=== PATIENT | male | born 1955 | race Caucasian/White ===

== ENCOUNTER → 2020-11-28 | Outpatient (CLI) | payer BC | END | disposition home or self-care (01) | LOC: LABWHC1 14:02 | PROVIDERS: ATTEND Family Medicine | DX: Z20.822 Contact with and (suspected) exposure to COVID-19 (principal) | CPT/HCPCS: U0003; C9803; U0005 ==

== ENCOUNTER 2021-03-19 09:17 | Emergency (ER) | payer BC ==
[2021-03-19 09:22] VITALS: RESP 18; TEMP 97.7
--- NOTE | 2021-03-19 09:34 | ED ---
General Adult HPI - General Chief complaint: Neuro Symptoms/Deficit Stated complaint: Neuro Symptoms Time Seen by Provider: 03/19/21 09:25 Source: patient, RN notes reviewed, old records reviewed Mode of arrival: ambulatory Limitations: no limitations - History of Present Illness Initial comments: 65-year-old male who had presented for evaluation of right-sided facial droop which began yesterday 7 PM as a mild headache and difficulty closing his eye. 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 Patient has no limb weakness, no speech abnormalities. He noted weakness to the entire right side of his face both upper and lower. 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 He states that at that time they had accidentally drawn cardiac enzymes and he was noted to have an elevated troponin and subsequently required CABG. He has no active chest pain. He is active and was working outside yesterday. No difficulty breathing. - Related Data Home Medications Medication Instructions Recorded Confirmed Atorvastatin Calcium [Lipitor] 80 mg PO HS 10/16/15 03/19/21 lisinopriL [Zestril] 20 mg PO HS 10/16/15 03/19/21 Aspirin 81 mg PO DAILY 03/19/21 03/19/21 hydroCHLOROthiazide 25 mg PO DAILY PRN 03/19/21 03/19/21 lisinopriL [Zestril] 10 mg PO ONETIME 03/19/21 03/19/21 Previous Rx's Medication Instructions Recorded Artificial Tears Ointment 1 gm OPHTHALMIC HS #30 ml 03/19/21 [Lubrifresh Pm Ointment] Artificial Tears-Hypromellose 1 drops RIGHT EYE QID #30 ml 03/19/21 [Artificial Tear Drops] predniSONE [Deltasone] 60 mg PO DAILY 7 Days #21 tab 03/19/21 valACYclovir HCL [Valtrex] 1,000 mg PO Q8HR #21 tab 03/19/21 Allergies Allergy/AdvReac Type Severity Reaction Status Date / Time No Known Allergies Allergy Verified 03/19/21 10:25 Review of Systems ROS Statement: Those systems with pertinent positive or pertinent negative responses have been documented in the HPI. ROS Other: All systems not noted in ROS Statement are negative. Past Medical History Past Medical History: GERD/Reflux, Hypertension, Myocardial Infarction (non Q- wave) Last Myocardial Infarction Date:: 05/2009 History of Any Multi-Drug Resistant Organisms: None Reported Past Surgical History: Coronary Bypass/CABG, Heart Catheterization, Hernia Repair Past Anesthesia/Blood Transfusion Reactions: No Reported Reaction Past Psychological History: No Psychological Hx Reported Smoking Status: Former smoker Past Alcohol Use History: None Reported Past Drug Use History: None Reported - Past Family History Mother Family Medical History: No Reported History General Exam Limitations: no limitations General appearance: alert, in no apparent distress Head exam: Present: atraumatic, normocephalic Eye exam: Present: PERRL, other (Cannot close his right eye completely) Respiratory exam: Present: normal lung sounds bilaterally. Absent: respiratory distress Cardiovascular Exam: Present: regular rate, normal rhythm GI/Abdominal exam: Present: soft. Absent: distended, tenderness, guarding Extremities exam: Present: normal inspection, normal capillary refill Neurological exam: Present: alert, oriented X3, motor sensory deficit (Patient has right sided facial weakness both upper and lower. He's unable to close his eye tightly. Forehead involved.). Absent: CN II-XII intact Psychiatric exam: Present: normal affect, normal mood Skin exam: Present: warm, dry, intact. Absent: cyanosis, diaphoretic Course Vital Signs 03/19/21 03/19/21 09:18 10:22 Temperature 97.7 F Pulse Rate 69 62 Respiratory 18 18 Rate Blood Pressure 162/85 153/94 O2 Sat by Pulse 98 Oximetry EKG Findings - EKG Comments: EKG Findings:: Normal sinus rhythm, incomplete right bundle-branch block, rate of 62, no ST segment elevation, KS interval 166, QRS duration 104, QTC 426. Medical Decision Making - Medical Decision Making 65-year-old male presenting with sudden onset facial weakness on the right. His exam is consistent with a Wyatt's palsy there is both upper and lower weakness no forehead sparing. The remainder of his neurologic exam is completely normal. He was sent in by the primary care physician for CT rule out CVA. I have a low suspicion for CVA in this patient as negative. Laboratory testing including CBC, electrolytes, troponin are unremarkable. His EKG is sinus rhythm without ST segment elevation. Patient is given Valtrex and steroids as well as artificial tears an artificial tear ointment is instructed to tape his eyelid shut at night. He will follow both with neurology and with ophthalmology. He is given strict return parameters. - Lab Data Result diagrams: 03/19/21 09:41 03/19/21 09:41 Lab Results 03/19/21 03/19/21 03/19/21 Range/Units 09:41 09:41 09:41 WBC 7.7 (3.8-10.6) k/uL RBC 5.70 (4.30-5.90) m/uL Hgb 15.0 (13.0-17.5) gm/dL Hct 46.3 (39.0-53.0) % MCV 81.2 (80.0-100.0) fL MCH 26.2 (25.0-35.0) pg MCHC 32.3 (31.0-37.0) g/dL RDW 14.6 (11.5-15.5) % Plt Count 239 (150-450) k/uL MPV 7.5 Neutrophils % 74 % Lymphocytes % 15 % Monocytes % 5 % Eosinophils % 2 % Basophils % 1 % Neutrophils # 5.7 (1.3-7.7) k/uL Lymphocytes # 1.1 (1.0-4.8) k/uL Monocytes # 0.4 (0-1.0) k/uL Eosinophils # 0.2 (0-0.7) k/uL Basophils # 0.1 (0-0.2) k/uL PT 10.7 (9.0-12.0) sec INR 1.0 (<1.2) APTT 27.1 (22.0-30.0) sec Sodium 139 (137-145) mmol/L Potassium 4.3 (3.5-5.1) mmol/L Chloride 106 (98-107) mmol/L Carbon Dioxide 24 (22-30) mmol/L Anion Gap 9 mmol/L BUN 16 (9-20) mg/dL Creatinine 0.69 (0.66-1.25) mg/dL Est GFR (CKD-EPI)AfAm >90 (>60 ml/min/1.73 sqM) Est GFR (CKD-EPI)NonAf >90 (>60 ml/min/1.73 sqM) Glucose 104 H (74-99) mg/dL Calcium 9.3 (8.4-10.2) mg/dL Total Bilirubin 0.6 (0.2-1.3) mg/dL AST 39 (17-59) U/L ALT 41 (4-49) U/L Alkaline Phosphatase 192 H (38-126) U/L Troponin I (0.000-0.034) ng/mL Total Protein 7.3 (6.3-8.2) g/dL Albumin 4.1 (3.5-5.0) g/dL 03/19/21 Range/Units 09:41 WBC (3.8-10.6) k/uL RBC (4.30-5.90) m/uL Hgb (13.0-17.5) gm/dL Hct (39.0-53.0) % MCV (80.0-100.0) fL MCH (25.0-35.0) pg MCHC (31.0-37.0) g/dL RDW (11.5-15.5) % Plt Count (150-450) k/uL MPV Neutrophils % % Lymphocytes % % Monocytes % % Eosinophils % % Basophils % % Neutrophils # (1.3-7.7) k/uL Lymphocytes # (1.0-4.8) k/uL Monocytes # (0-1.0) k/uL Eosinophils # (0-0.7) k/uL Basophils # (0-0.2) k/uL PT (9.0-12.0) sec INR (<1.2) APTT (22.0-30.0) sec Sodium (137-145) mmol/L Potassium (3.5-5.1) mmol/L Chloride (98-107) mmol/L Carbon Dioxide (22-30) mmol/L Anion Gap mmol/L BUN (9-20) mg/dL Creatinine (0.66-1.25) mg/dL Est GFR (CKD-EPI)AfAm (>60 ml/min/1.73 sqM) Est GFR (CKD-EPI)NonAf (>60 ml/min/1.73 sqM) Glucose (74-99) mg/dL Calcium (8.4-10.2) mg/dL Total Bilirubin (0.2-1.3) mg/dL AST (17-59) U/L ALT (4-49) U/L Alkaline Phosphatase (38-126) U/L Troponin I <0.012 (0.000-0.034) ng/mL Total Protein (6.3-8.2) g/dL Albumin (3.5-5.0) g/dL Disposition Clinical Impression: Wyatt's palsy Disposition: HOME SELF-CARE Condition: Good Instructions (If sedation given, give patient instructions): Wyatt Palsy (ED) Prescriptions: Artificial Tears-Hypromellose [Artificial Tear Drops] 1 drops RIGHT EYE QID #30 ml predniSONE [Deltasone] 60 mg PO DAILY 7 Days #21 tab Artificial Tears Ointment [Lubrifresh Pm Ointment] 1 gm OPHTHALMIC HS #30 ml valACYclovir HCL [Valtrex] 1,000 mg PO Q8HR #21 tab Is patient prescribed a controlled substance at d/c from ED?: No Referrals: Vicky Kebede MD [Primary Care Provider] - 1-2 days Matteo Alejandro MD [STAFF PHYSICIAN] - 1-2 days Rahel Bermudez MD [REFERRING] - 1-2 days Time of Disposition: 10:55
[2021-03-19 09:56] LABS: Basophils # (A) 0.1 k/uL (0-0.2); Basophils % (A) 1 %; Eosinophils # (A) 0.2 k/uL (0-0.7); Eosinophils % (A) 2 %; HCT 46.3 % (39.0-53.0); Lymphocytes # (A) 1.1 k/uL (1.0-4.8); Lymphocytes % (A) 15 %; MCH 26.2 pg (25.0-35.0); MCHC 32.3 g/dL (31.0-37.0); MCV 81.2 fL (80.0-100.0); Mean Platelet Volume 7.5; Monocytes # (A) 0.4 k/uL (0-1.0); Monocytes % (A) 5 %; Neutrophils # (A) 5.7 k/uL (1.3-7.7); Neutrophils % (A) 74 %; Platelet Count 239 k/uL (150-450); RDW 14.6 % (11.5-15.5); WBC 7.7 k/uL (3.8-10.6)
[2021-03-19 10:07] LABS: ALT 41 U/L (4-49); AST 39 U/L (17-59); African American GFR (CKD) >90 (>60 ml/min/1.73 sqM); Albumin 4.1 g/dL (3.5-5.0); Alkaline Phosphatase 192 U/L (38-126); Anion Gap 9 mmol/L; Blood Urea Nitrogen 16 mg/dL (9-20); Calcium 9.3 mg/dL (8.4-10.2); Carbon Dioxide 24 mmol/L (22-30); Chloride 106 mmol/L (98-107); Glucose 104 mg/dL (74-99); Non-African American GFR(CKD) >90 (>60 ml/min/1.73 sqM); Potassium 4.3 mmol/L (3.5-5.1); Sodium 139 mmol/L (137-145); Total Bilirubin 0.6 mg/dL (0.2-1.3); Total Protein 7.3 g/dL (6.3-8.2)
--- NOTE | 2021-03-19 10:12 | CT ---
EXAMINATION TYPE: CT brain wo con DATE OF EXAM: 03/19/2021 COMPARISON: None HISTORY: right side facial droop, numbness CT DLP: 1099.[address] of the brain was performed. The ventricles, basal cisterns and sulci overlying the cerebral convexities demonstrate mild enlargem ent. Small lacunar infarct noted of the right-sided internal capsule at its genu. There is no evidence for intracranial hemorrhage or sulcal effacement. There is decreased attenuation about the periventricular white matter and deep white matter of both c erebral hemispheres, compatible with chronic small vessel ischemia. Differential diagnosis does inclu de demyelination. No mass effects are seen.No midline shift. Osseous calvarium is intact. If symptoms persist consider MRI. IMPRESSION: 1. Age related atrophic and chronic small vessel ischemic change without acute intracranial process s een at this time.
--- NOTE | 2021-03-19 10:13 | XR ---
EXAMINATION TYPE: XR chest 2V DATE OF EXAM: 03/19/2021 COMPARISON: NONE HISTORY: altered mental status TECHNIQUE: Frontal and lateral views of the chest are obtained. FINDINGS: There is no focal air space opacity, pleural effusion, or pneumothorax seen. The cardiac silhouette size is within normal limits. Patient is status post sternotomy. IMPRESSION: No acute cardiopulmonary process.
[2021-03-19 10:17] LABS: Partial Thromboplastin Time 27.1 sec (22.0-30.0); Prothrombin Time 10.7 sec (9.0-12.0)
[2021-03-19 10:47] VITALS: BP 153/94; PULSE 62
== END 2021-03-19 11:15 | disposition home or self-care (01) ==
LOC: EC 09:17
DX: G51.0 Bell's palsy (principal); I10 Essential (primary) hypertension; I25.2 Old myocardial infarction; Z87.891 Personal history of nicotine dependence; Z79.899 Other long term (current) drug therapy; Z95.1 Presence of aortocoronary bypass graft
CPT/HCPCS: 36415; 70450; 71046; 80053; 84484; 85025; 85610; 85730; 93005; 99284

== ENCOUNTER 2024-08-15 11:57 | Day surgery (SDC) | payer OTHER ==
[2024-08-14 11:54] VITALS: BMI 29.5
[2024-08-15] MEDS: IV FLUID CONTINUATION 1,000 ML IV ONE (13:06)
[2024-08-15 13:15] VITALS: TEMP 98.8
[2024-08-15] MEDS: LACTATED RINGERS 1,000 ML BAG IV STA (13:25)
[2024-08-15] MEDS ORDERED: PROPOFOL 10 MG/ML 20 ML VIAL IV ONE (13:53)
--- NOTE | 2024-08-15 14:27 | P.PCN ---
Date of Procedure: 08/15/24 Procedure(s) Performed: BRIEF HISTORY: Patient is a 69-year-old pleasant white male scheduled for an elective colonoscopy as a part of for colon cancer/positive Cologuard. PROCEDURE PERFORMED: Colonoscopy r with snare polypectomy and Endo Clip placement PREOPERATIVE DIAGNOSIS: Screening for colon cancer/positive:. IV sedation per Anesthesia. PROCEDURE: After informed consent was obtained, the patient, was brought into the endoscopy unit. IV sedation was administered by Anesthesia under continuous monitoring. Digital rectal examination was normal. Initially the Olympus CF-160 flexible video colonoscope was then inserted in the rectum, gradually advanced into the cecum without any difficulty. Careful examination was performed as the scope was gradually being withdrawn. Ileocecal valve and the appendiceal orifice were visualized and appeared normal. Prep was excellent. Mucosa of the cecum, had a 5 mm and 1 cm polyp removed by snare polypectomy. In the ascending colon there was a 1 cm, 2 cm and a 4 cm broad-based polyp that was removed by piecemeal snare polypectomy and complete polypectomy accomplished followed by Endo Clip placement. In the transverse colon there was a 1 cm x 2.2 cm polyp removed by snare polypectomy. In the descending colon there was another 2 cm polyp removed by snare polypectomy. In the rectum there was a 1 cm polyp removed by snare polypectomy. Retroflexion was performed in the rectum and no lesions were seen. The patient tolerated the procedure well. IMPRESSION: 5 mm 1 cm cecal polyp status post snare polypectomy 1 cm, 2 cm adenoma 4 cm broad-based ascending colon polyp status post snare polypectomy followed by Endo Clip placement 1 cm x 2 and 2 cm transverse colon polyp status post polypectomy 2 cm descending colon polyp status post polypectomy 1 cm rectal polyp status post polypectomy RECOMMENDATIONS: Findings of this examination were discussed with the patient as well as his family. He was advised to follow-up with the biopsy results. If the biopsy reveals adenoma he can have repeat colonoscopy in 6 months..
[2024-08-15 14:50] VITALS: BP 155/75; PULSE 61; RESP 18
== END 2024-08-15 15:15 | disposition home or self-care (01) ==
LOC: ORWHC2ENDO 11:57
PROVIDERS: ATTEND Internal Medicine Gastroenterology
DX: D12.0 Benign neoplasm of cecum (principal); D12.2 Benign neoplasm of ascending colon; D12.3 Benign neoplasm of transverse colon; D12.4 Benign neoplasm of descending colon; D12.8 Benign neoplasm of rectum; I10 Essential (primary) hypertension; E78.5 Hyperlipidemia, unspecified; I25.2 Old myocardial infarction; I25.10 Atherosclerotic heart disease of native coronary artery without angina pectoris; K21.9 Gastro-esophageal reflux disease without esophagitis; Z95.1 Presence of aortocoronary bypass graft; Z79.82 Long term (current) use of aspirin; Z79.02 Long term (current) use of antithrombotics/antiplatelets; Z79.899 Other long term (current) drug therapy
CPT/HCPCS: 88305; 45385; J2704

== ENCOUNTER 2024-08-17 14:10 | Emergency (ER) | payer OTHER ==
[2024-08-17 15:15] LABS: Basophils # (A) 0.1 k/uL (0-0.2); Basophils % (A) 1 %; Eosinophils # (A) 0.3 k/uL (0-0.7); Eosinophils % (A) 3 %; HCT 39.4 % (39.0-53.0); HGB 13.1 gm/dL (13.0-17.5); Lymphocytes # (A) 1.5 k/uL (1.0-4.8); Lymphocytes % (A) 13 %; MCH 27.3 pg (25.0-35.0); MCHC 33.3 g/dL (31.0-37.0); Mean Platelet Volume 7.3; Monocytes # (A) 0.6 k/uL (0-1.0); Monocytes % (A) 6 %; Neutrophils # (A) 8.4 k/uL (1.3-7.7); Neutrophils % (A) 76 %; Platelet Count 254 k/uL (150-450); RDW 14.5 % (11.5-15.5)
[2024-08-17 15:27] LABS: INR 1.1 (<1.2); Partial Thromboplastin Time 23.2 sec (22.0-30.0); Prothrombin Time 11.6 sec (10.0-12.5)
[2024-08-17] MEDS: PANTOPRAZOLE 40 MG/10 ML VIAL IVP STA (15:29)
[2024-08-17] MEDS: SODIUM CHLORIDE 0.9% 1,000 ML IV SCH (15:30)
--- NOTE | 2024-08-17 15:33 | ED ---
General Adult HPI - General Chief complaint: GI Bleed Stated complaint: blood in stool Time Seen by Provider: 08/17/24 14:34 Source: patient, family, RN notes reviewed, old records reviewed Mode of arrival: ambulatory Limitations: no limitations - History of Present Illness Initial comments: 69-year-old male presenting with bright red rectal bleeding. Patient had colonoscopy 2 days prior with polyp removal. He states that he had a normal bowel movement earlier this morning followed by approximately 5 large-volume bowel movements which were predominantly blood. He is had cramping abdominal pain throughout the day today. Patient states he is weak, fatigued, lightheaded. - Related Data Home Medications Medication Instructions Recorded Confirmed Atorvastatin Calcium [Lipitor] 80 mg PO HS 10/16/15 08/15/24 lisinopriL [Zestril] 20 mg PO HS 10/16/15 08/15/24 Aspirin 81 mg PO DAILY 03/19/21 08/15/24 hydroCHLOROthiazide 25 mg PO DAILY PRN 03/19/21 08/15/24 Allergies Allergy/AdvReac Type Severity Reaction Status Date / Time No Known Allergies Allergy Verified 08/17/24 14:25 Review of Systems ROS Statement: Those systems with pertinent positive or pertinent negative responses have been documented in the HPI. ROS Other: All systems not noted in ROS Statement are negative. Past Medical History Past Medical History: GERD/Reflux, Hyperlipidemia, Hypertension, Myocardial Infarction (non Q-wave) Additional Past Medical History / Comment(s): POSITIVE COLOGARD Last Myocardial Infarction Date:: 05/2009 History of Any Multi-Drug Resistant Organisms: None Reported Past Surgical History: Coronary Bypass/CABG, Heart Catheterization, Hernia Repair Additional Past Surgical History / Comment(s): 05/2009, COLONOSCOPY Past Anesthesia/Blood Transfusion Reactions: No Reported Reaction Past Psychological History: No Psychological Hx Reported Smoking Status: Former smoker Past Alcohol Use History: None Reported Past Drug Use History: None Reported - Past Family History Mother Family Medical History: No Reported History General Exam Limitations: no limitations General appearance: alert, in no apparent distress Head exam: Present: atraumatic, normocephalic Eye exam: Present: normal appearance, PERRL Respiratory exam: Present: normal lung sounds bilaterally. Absent: respiratory distress Cardiovascular Exam: Present: normal rhythm, tachycardia GI/Abdominal exam: Present: soft, distended. Absent: tenderness Extremities exam: Present: normal inspection, normal capillary refill Neurological exam: Present: alert, oriented X3, CN II-XII intact. Absent: motor sensory deficit Skin exam: Present: diaphoretic, pallor Course Vital Signs 08/17/24 08/17/24 08/17/24 14:25 15:09 15:18 Temperature 98.6 F 98.1 F Pulse Rate 115 H 93 91 Respiratory 20 18 18 Rate Blood Pressure 148/78 113/76 112/80 O2 Sat by Pulse 96 94 L 96 Oximetry 08/17/24 08/17/24 08/17/24 15:21 15:25 15:45 Temperature Pulse Rate 93 102 H 87 Respiratory 18 18 18 Rate Blood Pressure 101/73 106/77 125/76 O2 Sat by Pulse 95 97 95 Oximetry 08/17/24 08/17/24 18:13 18:47 Temperature Pulse Rate 100 85 Respiratory 18 18 Rate Blood Pressure 91/70 132/76 O2 Sat by Pulse 100 100 Oximetry - Reevaluation(s) Reevaluation #1: 08/17/24 19:[address] Michaud in the emergency department she was able to, inject and clip a bleeding site in the cecum and was able to obtain hemorrhage control. She recommended the patient be transferred to facility with interventional radiology if the patient should have continued bleeding. I initially discussed this with [facility] in [place] who preferred that the patient be kept within the [facility] system and encouraged us to contact [facility]. I did contact [facility] and confirm they had interventional radiology for evaluation if this patient worked needed. I discussed case with the rachel roenterologist at [facility] who has accepted the patient, Dr. Santizo. Medical Decision Making - Medical Decision Making Was pt. sent in by a medical professional or institution (, PA, [employer]AT DECKHAND, urgent care, hospital, or intermediate...) When possible be specific @ -[No] Did you speak to anyone other than the patient for history (EMS, parent, family, police, friend...)? What history was obtained from this source @ -[No] Did you review nursing and triage notes (agree or disagree)? Why? @ -[I reviewed and agree with nursing and triage notes] Were old charts reviewed (outside hosp., previous admission, EMS record, old EKG, old radiological studies, urgent care reports/EKG's, intermediate records)? Report findings @ -[No old charts were reviewed] Differential GI Bleed: Esophageal varices, aortoenteric fistula, Manju-Fry, gastritis, peptic ulcer disease, diverticulosis, inflammatory bowel disease, hemorrhoids, fissure, colitis, malignancy, Meckel's diverticulum, this is not meant to be an all- inclusive list. EKG interpreted by me (3pts min.). @ -Sinus rhythm rate of 92, OK interval 145, QRS duration 109, QTc [address] segment elevation. X-rays interpreted by me (1pt min.). @ -[None done] CT interpreted by me (1pt min.). @ -[None done] U/S interpreted by me (1pt. min.). @ -[None done] What testing was considered but not performed or refused? (CT, X-rays, U/S, labs)? Why? @ -[None] What meds were considered but not given or refused? Why? @ -[None] Did you discuss the management of the patient with other professionals (professionals i.e. , PA, [employer] DECKHAND, lab, RT, psych nurse, director social welfare, clean out driller helper, teacher, loan officer assistant, case packer and sealer)? Give summary @Patient evaluated by Dr. Michaud, who was able to perform colonoscopy with clipping in the emergency department. Case discussed with the transfer team at [facility] who has accepted transfer for both GI and possible interventional radiology evaluation. Was smoking cessation discussed for >3mins.? @ -[No] Was critical care preformed (if so, how long)? @ -[Yes, 35 minutes Were there social determinants of health that impacted care today? How? (Homelessness, low income, unemployed, alcoholism, drug addiction, transportation, low edu. Level, literacy, decrease access to med. care, group home, rehab)? @ -[No] Was there de-escalation of care discussed even if they declined (Discuss DNR or withdrawal of care, Hospice)? DNR status @ -[No] What co-morbidities impacted this encounter? (DM, HTN, Smoking, COPD, CAD, Cancer, CVA, ARF, Chemo, Hep., AIDS, mental health diagnosis, sleep apnea, morbid obesity)? @Patient colonoscopy with polypectomy Was patient admitted / discharged? Hospital course, mention meds given and route, prescriptions, significant lab abnormalities, going to OR and other pertinent info. @ -69-year-old male presenting with lower GI bleed after colonoscopy. Patient pale, hypotensive and tachycardic upon arrival. He has sustained hypotension with a brief syncopal episode. Patient given 1 unit of blood and case is immediately discussed with the length control tester who is familiar with the patient. Patient resuscitated and underwent colonoscopy in the emergency department with bleeding from previous polypectomy site in the cecum. The length control tester Dr. Michaud felt that she was able to gain hemorrhage control but requested transfer to facility with interventional radiology if the patient wants to rebleed. Hemoglobin 13.1 Undiagnosed new problem with uncertain prognosis? @ -[No] Drug Therapy requiring intensive monitoring for toxicity (Heparin, Nitro, Insulin, Cardizem)? @ -[No] Were any procedures done? @ -[No] Diagnosis/symptom? @ -[GI bleed after colonoscopy, hemorrhagic shock Acute, or Chronic, or Acute on Chronic? @ -Acute Uncomplicated (without systemic symptoms) or Complicated (systemic symptoms)? @ -[default] Side effects of treatment? @ -[No] Exacerbation, Progression, or Severe Exacerbation? @ -[No] Poses a threat to life or bodily function? How? (Chest pain, USA, ME, pneumonia, PE, COPD, DKA, ARF, appy, cholecystitis, CVA, Diverticulitis, Homicidal, Suicidal, threat to staff... and all critical care pts) @Yes, hemorrhagic shock, lower GI bleed - Lab Data Result diagrams: 08/17/24 14:58 08/17/24 14:58 Lab Results 08/17/24 08/17/24 08/17/24 Range/Units 14:58 14:58 14:58 WBC 11.0 H (3.8-10.6) k/uL RBC 4.80 (4.30-5.90) m/uL Hgb 13.1 (13.0-17.5) gm/dL Hct 39.4 (39.0-53.0) % MCV 82.0 (80.0-100.0) fL MCH 27.3 (25.0-35.0) pg MCHC 33.3 (31.0-37.0) g/dL RDW 14.5 (11.5-15.5) % Plt Count 254 (150-450) k/uL MPV 7.3 Neutrophils % 76 % Lymphocytes % 13 % Monocytes % 6 % Eosinophils % 3 % Basophils % 1 % Neutrophils # 8.4 H (1.3-7.7) k/uL Lymphocytes # 1.5 (1.0-4.8) k/uL Monocytes # 0.6 (0-1.0) k/uL Eosinophils # 0.3 (0-0.7) k/uL Basophils # 0.1 (0-0.2) k/uL PT 11.6 (10.0-12.5) sec INR 1.1 (<1.2) APTT 23.2 (22.0-30.0) sec Sodium 136 L (137-145) mmol/L Potassium 3.8 (3.5-5.1) mmol/L Chloride 108 H (98-107) mmol/L Carbon Dioxide 24 (22-30) mmol/L Anion Gap 4 mmol/L BUN 15 (9-20) mg/dL Creatinine 0.82 (0.66-1.25) mg/dL Est GFR (CKD-EPI)AfAm >90 (>60 ml/min/1.73 sqM) Est GFR (CKD-EPI)NonAf >90 (>60 ml/min/1.73 sqM) Glucose 132 H (74-99) mg/dL Calcium 8.6 (8.4-10.2) mg/dL Magnesium 2.0 (1.6-2.3) mg/dL Total Bilirubin 0.6 (0.2-1.3) mg/dL AST 30 (17-59) U/L ALT 33 (4-49) U/L Alkaline Phosphatase 149 H (38-126) U/L Total Protein 6.6 (6.3-8.2) g/dL Albumin 3.6 (3.5-5.0) g/dL Blood Type Blood Type Recheck Bld Type Recheck Status Antibody Screen Crossmatch Spec Expiration Date 08/17/24 Range/Units 14:58 WBC (3.8-10.6) k/uL RBC (4.30-5.90) m/uL Hgb (13.0-17.5) gm/dL Hct (39.0-53.0) % MCV (80.0-100.0) fL MCH (25.0-35.0) pg MCHC (31.0-37.0) g/dL RDW (11.5-15.5) % Plt Count (150-450) k/uL MPV Neutrophils % % Lymphocytes % % Monocytes % % Eosinophils % % Basophils % % Neutrophils # (1.3-7.7) k/uL Lymphocytes # (1.0-4.8) k/uL Monocytes # (0-1.0) k/uL Eosinophils # (0-0.7) k/uL Basophils # (0-0.2) k/uL PT (10.0-12.5) sec INR (<1.2) APTT (22.0-30.0) sec Sodium (137-145) mmol/L Potassium (3.5-5.1) mmol/L Chloride (98-107) mmol/L Carbon Dioxide (22-30) mmol/L Anion Gap mmol/L BUN (9-20) mg/dL Creatinine (0.66-1.25) mg/dL Est GFR (CKD-EPI)AfAm (>60 ml/min/1.73 sqM) Est GFR (CKD-EPI)NonAf (>60 ml/min/1.73 sqM) Glucose (74-99) mg/dL Calcium (8.4-10.2) mg/dL Magnesium (1.6-2.3) mg/dL Total Bilirubin (0.2-1.3) mg/dL AST (17-59) U/L ALT (4-49) U/L Alkaline Phosphatase (38-126) U/L Total Protein (6.3-8.2) g/dL Albumin (3.5-5.0) g/dL Blood Type O Negative Blood Type Recheck O Neg Bld Type Recheck Status No Antibody Screen NEGATIVE Crossmatch See Detail Spec Expiration Date 08/20/20242357 Critical Care Time Critical Care Time: Yes Total Critical Care Time: 35 Disposition Clinical Impression: Hematochezia Disposition: OTHER INSTITUTION NOT DEFINED Condition: Stable Is patient prescribed a controlled substance at d/c from ED?: No Referrals: Vicky Kebede MD [Primary Care Provider] - 1-2 days Time of Disposition: 19:59 - Out of Hospital Transfer - Req. Specs Out of Hospital Transfer - Requested Specifics: Other Emergency Center (Transfer to [facility])
[2024-08-17 15:39] LABS: ALT 33 U/L (4-49); AST 30 U/L (17-59); African American GFR (CKD) >90 (>60 ml/min/1.73 sqM); Albumin 3.6 g/dL (3.5-5.0); Alkaline Phosphatase 149 U/L (38-126); Anion Gap 4 mmol/L; Blood Urea Nitrogen 15 mg/dL (9-20); Calcium 8.6 mg/dL (8.4-10.2); Carbon Dioxide 24 mmol/L (22-30); Chloride 108 mmol/L (98-107); Glucose 132 mg/dL (74-99); Non-African American GFR(CKD) >90 (>60 ml/min/1.73 sqM); Potassium 3.8 mmol/L (3.5-5.1); Sodium 136 mmol/L (137-145); Total Bilirubin 0.6 mg/dL (0.2-1.3); Total Protein 6.6 g/dL (6.3-8.2)
[2024-08-17] MEDS ORDERED: PROPOFOL 10 MG/ML 20 ML VIAL IV ONE (17:45)
[2024-08-17] MEDS ORDERED: PHENYLEPHRINE-0.9% NACL SYG 1,000 MCG/10 ML SYRINGE ONE (17:45)
[2024-08-17] MEDS ORDERED: SUCCINYLCHOLINE CHLORIDE 200 MG/10 ML VIAL IV ONE (17:45)
[2024-08-17] MEDS ORDERED: LIDOCAINE 1% INJ 10MG/ML (20 ML MDV) ONE (17:45)
--- NOTE | 2024-08-17 18:54 | P.CONS ---
History of Present Illness - Reason for Consult Consult date: 08/17/24 Requesting physician: Vicky Kebede - Chief Complaint Acute post polypectomy LGI bleed - History of Present Illness Patient is a 69-year-old pleasant white male who underwent colonoscopy on outpatient basis for a positive Cologuard 2 days ago. He was noted to have mult iple colon polyps the largest of which measured 4 cm in the ascending colon and 2 other polyps measuring 1 and 2 cm in the ascending colon all of which were removed by snare polypectomy followed by Endo Clip placement of the large polyp. He also had 1 cm polyp in the cecum, 1 cm polyp in the transverse colon and 2 cm polyp in the descending colon. Patient was discharged home. This afternoon he had multiple episodes of bright red blood per rectum and came to them to the emergency room and apparently was noted to be hypotensive and tachycardic. He was resuscitated with fluids and he became hemodynamically stable. Initial hemoglobin was 13.5 g/dL. Since being in the ER he had another 2 episodes of bright red blood per rectum. Not on any anticoagulation. Review of Systems GI as mentioned above cardiopulmonary patient denies any chest pain or shortness of breath Genitourinary no dysuria hematuria Musculoskeletal unremarkable Skin unremarkable Endocrine remarkable psychiatry remarkable Neurology unremarkable Past Medical History Past Medical History: GERD/Reflux, Hyperlipidemia, Hypertension, Myocardial Infarction (non Q-wave) Additional Past Medical History / Comment(s): POSITIVE COLOGARD Last Myocardial Infarction Date:: 05/2009 History of Any Multi-Drug Resistant Organisms: None Reported Past Surgical History: Coronary Bypass/CABG, Heart Catheterization, Hernia Repair Additional Past Surgical History / Comment(s): 05/2009, COLONOSCOPY Past Anesthesia/Blood Transfusion Reactions: No Reported Reaction Past Psychological History: No Psychological Hx Reported Smoking Status: Former smoker Past Alcohol Use History: None Reported Past Drug Use History: None Reported - Past Family History Mother Family Medical History: No Reported History Medications and Allergies Home Medications Medication Instructions Recorded Confirmed Type Atorvastatin Calcium [Lipitor] 80 mg PO HS 10/16/15 08/15/24 History lisinopriL [Zestril] 20 mg PO HS 10/16/15 08/15/24 History Aspirin 81 mg PO DAILY 03/19/21 08/15/24 History hydroCHLOROthiazide 25 mg PO DAILY PRN 03/19/21 08/15/24 History Allergies Allergy/AdvReac Type Severity Reaction Status Date / Time No Known Allergies Allergy Verified 08/17/24 14:25 Physical Exam Vitals: Vital Signs Temp Pulse Resp BP Pulse Ox 08/17/24 15:45 87 18 125/76 95 08/17/24 15:25 102 H 18 106/77 97 08/17/24 15:21 93 18 101/73 95 08/17/24 15:18 91 18 112/80 96 08/17/24 15:09 98.1 F 93 18 113/76 94 L 08/17/24 14:25 98.6 F 115 H 20 148/78 96 Intake and Output 08/17/24 08/17/24 08/17/24 06:59 14:59 22:59 Intake Total 0 Balance 0 Intake: Blood Product 0 Rc As-1 Unit 0 [id number] Other: Weight 105.233 kg H&E examination unremarkable Conjunctiva pink, sclera anicteric Oral cavity no lesions Neck no JVD lymph management chest clear to auscultation heart regular rate and rhythm Abdomen soft pulses are positive no organomegaly Extremities no pedal edema Skin no rashes Neuro alert and oriented x 3 no focal deficits Results CBC & Chem 7: 08/17/24 14:58 08/17/24 14:58 Labs: Abnormal Lab Results - Last 24 Hours (Table) 08/17/24 08/17/24 08/17/24 Range/Units 14:58 14:58 14:58 WBC 11.0 H (3.8-10.6) k/uL Neutrophils # 8.4 H (1.3-7.7) k/uL Sodium 136 L (137-145) mmol/L Chloride 108 H (98-107) mmol/L Glucose 132 H (74-99) mg/dL Alkaline Phosphatase 149 H (38-126) U/L Crossmatch See Detail Assessment and Plan (1) LGI bleed Narrative/Plan: Patient underwent a colonoscopy 2 days ago for a positive Cologuard. He was noted to have multiple colon polyps in the cecum, ascending colon, transverse colon and the descending colon all which were which were removed by snare polypectomy. The largest polyp was located in the ascending colon measuring 4 cm in size which was removed by piecemeal snare polypectomy followed by Endo Clip placement. Patient was discharged home after the colonoscopy uneventfully. This afternoon around 1:00 he started having multiple episodes of bright red blood per rectum. Patient came to the emergency room around 3:30 PM initially hemodynamically unstable. Most likely dealing with the initial CBC showed a hemoglobin of 13.5 g/dL. Patient on post polypectomy lower GI bleed. He is presently on low-dose aspirin. Not on any anticoagulations. Current Visit: Yes Status: Acute Code(s): K92.2 - GASTROINTESTINAL HEMORRHAGE, UNSPECIFIED SNOMED Code(s): 13131877 Plan: 1. Resuscitation with IV fluids and and 1 unit of PRBC transfusion 2. Monitor CBC every 6 hours 3. Will proceed with emergency colonoscopy in the emergency room at the bedside in an attempt to control post polypectomy bleed 4. Plan was discussed with the patient as well as his was at the bedside and agreeable to it Thank you for this consultation. Time with Patient: Greater than 30
--- NOTE | 2024-08-17 18:59 | P.PCN ---
Date of Procedure: 08/17/24 Procedure(s) Performed: BRIEF HISTORY: Patient is a 69-year-old pleasant white male came to emergency room with severe acute post polypectomy lower GI bleed. He underwent a colonoscopy 2 days ago and was noted to have a 1 cm cecal polyp, 1 cm, 5 mm and 4 cm ascending colon polyp that was removed by piecemeal snare polypectomy followed by Endo Clip placement, 1 cm transverse colon polyp and a 2 cm descending colon polyp all of which were removed by snare polypectomy. He did well and he was discharged home after the procedure. This afternoon he started having multiple episodes of bright red rectal blood per rectum. Came to the emergency room and was hemodynamically unstable. He was given IV fluids and his vital signs stabilized. Initial hemoglobin was 13.5 g/dL. Takes baby aspirin but no anticoagulation. He is scheduled for an emergency colonoscopy in the ICU for control of bleeding PROCEDURE PERFORMED: Colonoscopy with injection epinephrine and Endo Clip placement. PREOPERATIVE DIAGNOSIS: Acute post polypectomy lower GI bleed. IV sedation per Anesthesia. PROCEDURE: After informed consent was obtained, the patient, was brought into the endoscopy unit. IV sedation was administered by Anesthesia under continuous monitoring. Digital rectal examination was normal. Initially the Olympus CF-160 flexible video colonoscope was then inserted in the rectum, gradually advanced into the cecum without any difficulty. Careful examination was performed as the scope was gradually being withdrawn. Ileocecal valve and the appendiceal orifice were visualized and appeared normal. Prep was fair. Irrigation was performed.. In the base of the cecum by the appendiceal orifice there was a large clot with active oozing identified. Initially 2 endoclips were placed. Following this there was still some oozing identified and at this time 1 in 10,000 epinephrine was injected following which a third Endo Clip was placed and at this time good hemostasis was achieved. This area was removed and watched for almost 10 minutes and no further bleeding was noted. Careful examination was performed and the scope was gradually being withdrawn. The polyp in the ascending colon had [address] from recent polypectomy 2 days ago. Rest of the, ascending colon, transverse colon, descending colon, sigmoid colon, and rectum appeared normal. Retroflexion was performed in the rectum and no lesions were seen. The patient tolerated the procedure well. IMPRESSION: Active bleeding with an adherent clot noted in the base of the cecum by the appendiceal orifice at the site of recent polypectomy status post injection epinephrine and 3 Endo Clip placements with good hemostasis Polypectomy site in the ascending colon had endoclips in place with no active bleeding noted Rest of the colon appeared normal RECOMMENDATIONS: Findings of this examination were discussed with the patient as well as his family. Discussed with Dr. Lester who is on-call for surgery. Since the patient had significant amount of bleeding, recommend transfer to a tertiary center for interventional radiology consultation in case patient has recurrent bleeding. The plan was discussed with the patient's and she is agreeable to it. In the meantime we will continue to monitor CBC closely and transfuse as needed.
[2024-08-17 21:10] VITALS: BP 131/89; PULSE 73; RESP 15; TEMP 98.5
== END 2024-08-17 20:50 | disposition other institution (70) ==
LOC: EC 14:10
DX: K92.1 Melena (principal); Z87.891 Personal history of nicotine dependence; Z86.0100 Personal history of colon polyps, unspecified
CPT/HCPCS: 36415; 86900; 86901; 80053; 83735; 85025; 85610; 85730; 86850; 86920; 45382; 99291; 96374; 96361; 36430; P9016; J0330; J2003; J2704; J2371; J2470

== ENCOUNTER 2025-03-27 08:36 | Emergency (ER) | payer MEDICARE, OTHER ==
[2025-03-27 08:42] VITALS: RESP 18; TEMP 97.8
[2025-03-27] MEDS: TOPICAL SKIN ADHESIVE 1 EACH AMP TOPICAL ONE (08:44)
[2025-03-27] MEDS: LIDOCAINE 1%-EPI 1:100,000 20 ML VIAL SQ ONE (08:59)
--- NOTE | 2025-03-27 09:40 | ED ---
General Adult HPI - General Chief complaint: Recheck/Abnormal Lab/Rx Stated complaint: Hemorrhaging Time Seen by Provider: 03/27/25 08:40 Source: patient, EMS Mode of arrival: EMS - History of Present Illness Initial comments: 69-year-old male who presents to the emergency department for bleeding from the right leg. Patient does have varicose veins and accidentally hit his right leg. There was significant bleeding on site. EMS arrived and did wrap up the extremity. He does not take any blood thinners. He denies any lightheadedness or dizziness. No other alleviating, precipitating or modifying factors - Related Data Home Medications Medication Instructions Recorded Confirmed Atorvastatin Calcium [Lipitor] 80 mg PO HS 10/16/15 08/15/24 lisinopriL [Zestril] 20 mg PO HS 10/16/15 08/15/24 Aspirin 81 mg PO DAILY 03/19/21 08/15/24 hydroCHLOROthiazide 25 mg PO DAILY PRN 03/19/21 08/15/24 Allergies Allergy/AdvReac Type Severity Reaction Status Date / Time No Known Allergies Allergy Verified 03/27/25 08:42 Review of Systems ROS Statement: Those systems with pertinent positive or pertinent negative responses have been documented in the HPI. ROS Other: All systems not noted in ROS Statement are negative. Past Medical History Past Medical History: GERD/Reflux, Hyperlipidemia, Hypertension, Myocardial Infarction (non Q-wave) Additional Past Medical History / Comment(s): POSITIVE COLOGARD Last Myocardial Infarction Date:: 05/2009 History of Any Multi-Drug Resistant Organisms: None Reported Past Surgical History: Coronary Bypass/CABG, Heart Catheterization, Hernia Repair Additional Past Surgical History / Comment(s): 05/2009, COLONOSCOPY Past Anesthesia/Blood Transfusion Reactions: No Reported Reaction Past Psychological History: No Psychological Hx Reported Smoking Status: Former smoker Past Alcohol Use History: None Reported Past Drug Use History: None Reported - Past Family History Mother Family Medical History: No Reported History General Exam General appearance: alert, in no apparent distress Head exam: Present: atraumatic, normocephalic, normal inspection Eye exam: Present: normal appearance, PERRL, EOMI. Absent: scleral icterus, conjunctival injection, periorbital swelling ENT exam: Present: normal exam, mucous membranes moist Neck exam: Present: normal inspection. Absent: tenderness, meningismus, lymphadenopathy Respiratory exam: Present: normal lung sounds bilaterally. Absent: respiratory distress, wheezes, rales, rhonchi, stridor Cardiovascular Exam: Present: regular rate, normal rhythm, normal heart sounds. Absent: systolic murmur, diastolic murmur, rubs, gallop, clicks GI/Abdominal exam: Present: soft, normal bowel sounds. Absent: distended, tenderness, guarding, rebound, rigid Extremities exam: Present: full ROM, normal capillary refill, other (Patient does have a pulsatile cutaneous bleeding vessel on the anterior medial right oneill. Bleeding vessel measures approximately 2 mm. No underlying hematoma). Absent: tenderness, pedal edema, joint swelling, calf tenderness Back exam: Present: normal inspection Neurological exam: Present: alert, oriented X3, CN II-XII intact Psychiatric exam: Present: normal affect, normal mood Skin exam: Present: warm, dry, intact, normal color. Absent: rash Course Vital Signs 03/27/25 03/27/25 08:38 09:55 Temperature 97.8 F Pulse Rate 88 73 Respiratory 18 18 Rate Blood Pressure 140/94 138/89 O2 Sat by Pulse 94 L 95 Oximetry Procedures - Laceration Laceration #1 Consent Obtained: verbal consent Indication: other (Bleeding varicose vein) Site: lower extremity Depth: simple, single layer Anesthetic Used: lidocaine 1%, with epi Amount (mls): 8 Type of Sutures: nylon Size of Sutures: 5-0 Number of Sutures: 2 Technique: simple, interrupted Patient Tolerated Procedure: well, no complications Medical Decision Making - Medical Decision Making Was pt. sent in by a medical professional or institution (, PA, ALLOCATION ANALYST, urgent care, hospital, or senior living...) When possible be specific @ -[No] Did you speak to anyone other than the patient for history (EMS, parent, family, police, friend...)? What history was obtained from this source @ -Spoke with EMS for history Did you review nursing and triage notes (agree or disagree)? Why? @ -[I reviewed and agree with nursing and triage notes] Were old charts reviewed (outside hosp., previous admission, EMS record, old EKG, old radiological studies, urgent care reports/EKG's, senior living records)? Report findings @ -[No old charts were reviewed] Differential Diagnosis (chest pain, altered mental status, abdominal pain women, abdominal pain men, vaginal bleeding, weakness, fever, dyspnea, syncope, headache, dizziness, GI bleed, back pain, seizure, CVA, palpatations, mental health, musculoskeletal)? @ -Arterial bleed, laceration, abrasion, bleeding varicosity EKG interpreted by me (3pts min.). @ -Not done X-rays interpreted by me (1pt min.). @ -[None done] CT interpreted by me (1pt min.). @ -[None done] U/S interpreted by me (1pt. min.). @ -[None done] What testing was considered but not performed or refused? (CT, X-rays, U/S, labs)? Why? @ -[None] What meds were considered but not given or refused? Why? @ -[None] Did you discuss the management of the patient with other professionals (vincent cornejo i.e. , PA, ALLOCATION ANALYST, lab, RT, psych nurse, family welfare social work professor, annual giving officer, teacher, corporate compliance officer, caseworker protective services)? Give summary @ -[No] Was smoking cessation discussed for >3mins.? @ -[No] Was critical care preformed (if so, how long)? @ -[No] Were there social determinants of health that impacted care today? How? (Homelessness, low income, unemployed, alcoholism, drug addiction, transportation, low edu. Level, literacy, decrease access to med. care, senior care, rehab)? @ -[No] Was there de-escalation of care discussed even if they declined (Discuss DNR or withdrawal of care, Hospice)? DNR status @ -[No] What co-morbidities impacted this encounter? (DM, HTN, Smoking, COPD, CAD, Cancer, CVA, ARF, Chemo, Hep., AIDS, mental health diagnosis, sleep apnea, morbid obesity)? @ -[None] Was patient admitted / discharged? Hospital course, mention meds given and route, prescriptions, significant lab abnormalities, going to OR and other pertinent info. @ -Upon arrival patient seen and evaluated in bed 5. Thorough history and physical exam was performed. I did inject the area with 1% lidocaine with epinephrine. [address], 1 in a [id number] fashion. Bleeding was controlled. Patient was observed for 30 minutes without repeat bleeding. We did place a pressure dressing to the site. Patient will be discharged home. Must have stitches removed in 5 to 7 days. Instructed to return for any new or worsening symptoms Undiagnosed new problem with uncertain prognosis? @ -[No] Drug Therapy requiring intensive monitoring for toxicity (Heparin, Nitro, Insulin, Cardizem)? @ -[No] Were any procedures done? @ -Suture ligation of bleeding varicose vein Diagnosis/symptom? @ -Acute bleeding varicose vein Acute, or Chronic, or Acute on Chronic? @ -Acute Uncomplicated (without systemic symptoms) or Complicated (systemic symptoms)? @ -Uncomplicated Side effects of treatment? @ -[No] Exacerbation, Progression, or Severe Exacerbation? @ -[No] Poses a threat to life or bodily function? How? (Chest pain, [place], SC, pneumonia, PE, COPD, DKA, ARF, appy, cholecystitis, CVA, Diverticulitis, Homicidal, Suicidal, threat to staff... and all critical care pts) @ -[No] Disposition Clinical Impression: Varicose vein of leg Disposition: HOME SELF-CARE Condition: Stable Instructions (If sedation given, give patient instructions): Venous Insufficiency (DC) Additional Instructions: Please have your stitches removed in 5 to 7 days. Follow-up with your primary care doctor, go to an urgent care or return to the emergency department to have this done. Elevate your leg for the rest of the day and wear the compression stocking. Return for any new or worsening symptoms Is patient prescribed a controlled substance at d/c from ED?: No Referrals: Vicky Kebede MD [Primary Care Provider] - 1-2 days Time of Disposition: 09:40
[2025-03-27 09:57] VITALS: BP 138/89; PULSE 73
== END 2025-03-27 09:56 | disposition home or self-care (01) ==
LOC: EC 08:36
DX: I83.91 Asymptomatic varicose veins of right lower extremity (principal); Z87.891 Personal history of nicotine dependence; W22.8XXA Striking against or struck by other objects, initial encounter
CPT/HCPCS: 12001; 99283